=== PATIENT | male | born 1995 | race Caucasian/White ===

== ENCOUNTER 2020-07-30 14:34 | Emergency (ER) | payer OTHER, MEDICAID, SELFPAY ==
[2020-07-30 15:08] VITALS: BP 164/89; PULSE 63; RESP 14; TEMP 36.7; O2SAT 100; BMI 19.5
[2020-07-30 17:15] VITALS: BP 155/94; PULSE 64; RESP 18; O2SAT 99
[2020-07-30 18:02] LABS: Bacteria Urine None Seen; WBC Urine None Seen (0-5/HPF)
[2020-07-30 18:05] LABS: Appearance Urine UA CLOUDY; Bilirubin Urine UA NEGATIVE (NEGATIVE); Color Urine UA YELLOW; Glucose Urine UA NEGATIVE (Negative); Ketones Urine UA NEGATIVE (NEGATIVE); Leukocyte Esterase Urine UA NEGATIVE (NEGATIVE); Nitrite Urine UA NEGATIVE (Negative); Occult Blood Urine UA TRACE-INTACT (Negative); Protein Urine UA NEGATIVE (Negative); Specific Gravity Urine UA >=1.030 (1.000-1.035); Urobilinogen Urine UA 0.2 E.U./dL (0.2)
--- NOTE | 2020-07-30 18:11 | ED_ITS ---
HPI - Male Genitourinary General Chief complaint: Urogenital-Male Stated complaint: states infection Time Seen by Provider: 07/30/20 16:25 Source: patient Mode of arrival: Ambulatory Limitations: no limitations History of Present Illness HPI Narrative: 24-year-old male daily smoker without significant medical history presents with a chief complaint of some burning and itching of the tip of his penis for the past few days. He states that his significant other recently found out she was positive for chlamydia and he is convinced that he will be as well. He denies other partners. He's had no fever, chills, N/V Related Data Allergies Allergy/AdvReac Type Severity Reaction Status Date / Time No Known Drug Allergies Allergy Verified 07/30/20 15:08 Review of Systems Review of Systems ROS Unobtainable: All systems reviewed & are unremarkable except as noted in HPI and below Constitutional Constitutional: Denies chills, Denies fatigue, Denies fever(s), Denies frequent falls, Denies lethargy and Denies weakness Eyes Eyes: Denies change in vision, Denies eye discharge, Denies irritation and Denies loss of vision ENT Ears, Nose, Mouth, and Throat: Denies change in voice, Denies dizziness, Denies neck pain, Denies sore throat and Denies throat swelling Cardiovascular Cardiovascular: Denies chest pain, Denies irregular heart rhythm, Denies lightheadedness, Denies palpitations, Denies dyspnea, Denies dyspnea on exertion and Denies orthopnea Respiratory Respiratory: Denies cough, Denies dyspnea, Denies dyspnea on exertion and Denies wheezing Gastrointestinal Gastrointestinal: Denies abdominal pain, Denies change in bowel habits, Denies diarrhea, Denies nausea and Denies vomiting Genitourinary Genitourinary: Reports penile discharge Musculoskeletal Musculoskeletal: Denies neck pain and Denies numbness Integumentary/Breasts Skin/Breast: Denies pruritus, Denies erythema, Denies rash and Denies wounds Neurologic Neurologic: Denies behavioral changes, Denies confusion, Denies dizziness, Denies frequent falls, Denies loss of vision, Denies numbness and Denies weakness Psychiatric Psychiatric: Denies anxiety, Denies behavioral changes, Denies confusion, Denies depression, Denies homicidal ideation and Denies suicidal ideation Endocrine Endocrine: Denies fatigue, Denies flushing and Denies palpitations Hematologic/Lymphatic Hematologic/Lymphatic: Denies easy bruising Allergic/Immunologic Allergic/Immunologic: Denies urticaria, Denies throat swelling and Denies wheezing Patient History Social History Smoking Status: Current every day smoker Smoking Status: Current every day smoker alcohol intake frequency: holidays/special occasions only Substance Use Type: does not use Exam Narrative Exam Narrative: GEN: AOx3 and in mild distress EYES: Pupils are equal, round, and reactive to light and accommodation. Extraoccular muscles are intact bilaterally. There is no subconjunctival hemorrhage or exudate. CHEST: Lungs are clear to auscultation bilaterally and free of wheezes, rales, or rhonchi. Heart rate is regular rhythm, there are no murmurs, clicks, rubs, or gallops. There is no chest wall tenderness. ABD: Abdomen is soft and nontender. There is no guarding or rebound. Bowel sounds are normal in all 4 quadrants. There is no mass or organomegaly. EXT: Full painless ROM of all extremities with no loss of sensation or strength. SKIN: Warm, pink, and dry. No erythema or rash Initial Vital Signs Initial Vital Signs: Vital Signs Temperature 98.0 F 07/30/20 15:08 Pulse Rate 63 07/30/20 15:08 Respiratory Rate 14 07/30/20 15:08 Blood Pressure 164/89 H 07/30/20 15:08 Pulse Oximetry 100 07/30/20 15:08 Course Orders Ordered: Discontinued Medications Azithromycin (Azithromycin 250 Mg Tablet) 1,000 mg PO NOW ONE Stop: 07/30/20 18:34 Last Admin: 07/30/20 19:18 Dose: 1,000 mg Documented by: CARMENINOR Ceftriaxone Sodium (Ceftriaxone 1,000 Mg Vial) 500 mg IM NOW ONE Stop: 07/30/20 18:34 Last Admin: 07/30/20 19:14 Dose: 500 mg Documented by: EDIL Lidocaine HCl (Lidocaine 1% 20 Ml) 2.1 ml INJ NOW ONE Stop: 07/30/20 18:34 Last Admin: 07/30/20 19:18 Dose: Not Given Documented by: [email or web address] Vital Signs Vital signs: Vital Signs - 8 hr 07/30/20 19:27 Pulse Rate 66 Respiratory Rate 18 Blood Pressure 132/86 Pulse Oximetry 97 MDM - Male Genitourinary Lab Data Labs: Lab Results 07/30/20 07/30/20 Range/Units 15:11 15:11 Urine Color Yellow Urine Appearance Cloudy Urine pH 5.0 (4.5-8.0) Ur Specific [place] >=1.030 H (1.000-1.035) Urine Protein Negative (Negative) Urine Glucose (UA) Negative (Negative) g/dL Urine Ketones Negative (NEGATIVE) Urine Occult Blood Trace-intact (Negative) Urine Nitrate Negative (Negative) Urine Bilirubin Negative (NEGATIVE) Urine Urobilinogen 0.2 (0.2) E.U./dL Ur Leukocyte Esterase Negative (NEGATIVE) Urine RBC 1-5/hpf (0-5/HPF) Urine WBC None seen (0-5/HPF) Calcium Oxalate Crystal Occasional H Amorphous Sediment 4+ Urine Bacteria None seen (None) Ur Culture Indicated? Culture not indicate Ur Chlamydia DNA (PCR) Cancelled N gonorrhoeae DNA (PCR) Cancelled Discharge Plan Departure Patient Disposition: Home Clinical Impression: Urethritis Instructions: DI for Chlamydia Activity Restrictions/Additional Instructions: *You have been diagnosed with [urinary symptoms likely due to chlamydia exposure] *What to do: *Take medications as directed *Follow up with your primary care provider in 2-3 days, call for an appointment. Let them know you were seen in the Emergency Department and that we ask that you be seen in follow up * avoid sexual intercourse for the next week and notify all sexual partners of your diagnosis. As I stated, the lab is a send out and he will get a call assuming the results are positive *Return to ER if you should have any new, worsening or concerning symptoms
[2020-07-30 18:17] LABS: Calcium Oxalate Crystals Urine Occasional; RBC Urine 1-5/HPF (0-5/HPF)
[2020-07-30 18:18] LABS: Amorphous Sediment Urine 4+
[2020-07-30] MEDS: cefTRIAXone 1,000 MG VIAL 500 MG IM (19:14)
[2020-07-30] MEDS: LIDOCAINE 1% (PF) 4 ML (19:18)
[2020-07-30] MEDS: AZITHROMYCIN 250 MG TABLET 1000 MG PO (19:18)
[2020-07-30 19:27] VITALS: BP 132/86; PULSE 66; RESP 18; O2SAT 97
[2020-08-01 01:36] LABS: Chlamydia trachomatis NAA Negative (Negative); Neisseria gonorrhoeae NAA Negative (Negative)
[2020-08-02 00:48] LABS: Chlamydia trachomatis NAA Negative (Negative); Neisseria gonorrhoeae NAA Negative (Negative)
== END 2020-07-30 19:40 | disposition home or self-care (01) ==
PROVIDERS: Emergency Medicine; Emergency Provider Emergency Medicine
DX: N34.2 Other urethritis (principal); Z20.2 Contact with and (suspected) exposure to infections with a predominantly sexual mode of transmission; L29.8 Other pruritus
CPT/HCPCS: 81001; 87491; 87591; 96372; 99281; 99283; J0696